=== PATIENT | male | born 1990 | race African-American/Black ===

== ENCOUNTER 2024-04-16 23:21 | Emergency (ER) | payer MEDICARE, MEDICAID ==
[~2024-04-16] VITALS: Ht 182.9 cm; Wt 96.0 kg
[2024-04-16 23:24] VITALS: TEMP 98; O2SAT 98
[2024-04-17 00:07] LABS: BASOPHILS % 0.5 % (0.0-2.0); DIFFERENTIAL COMMENT 0; EOSINOPHILS % 0.1 % (0.0-5.0); HEMATOCRIT. 43.6 % (42.0-52.0); HEMOGLOBIN. 15.3 g/dL (14.0-18.0); LYMPHOCYTES % 32.3 % (20.0-50.0); MEAN CORPUSCULAR HEMOGLOBIN 25.1 pg (28.0-32.0); MEAN CORPUSCULAR VOLUME 71.7 fL (80.0-94.0); MEAN PLATELET VOLUME 8.7 fl (7.4-10.4); MONOCYTES % 6.1 % (2.0-8.0); PLATELET 157 x1000/uL (130-400); RED BLOOD CELL COUNT 6.08 mill/uL (4.7-6.1); RED CELL DISTRIBUTION WIDTH 15.2 % (11.6-14.6)
[2024-04-17 00:15] LABS: CHLORIDE 104 mEq/L (98-107); POTASSIUM 3.6 mEq/L (3.5-5.1); SODIUM 138 mEq/L (136-145)
[2024-04-17 00:16] LABS: CARBON DIOXIDE 27 mEq/L (21-32)
[2024-04-17 00:17] LABS: CALCIUM 9.3 mg/dL (8.7-10.4)
[2024-04-17 00:21] LABS: CREATININE 1.1 mg/dL (0.6-1.3); GLUCOSE 102 mg/dL (70-105)
[2024-04-17 00:22] LABS: UREA NITROGEN BLOOD 9 mg/dL (9-23)
[2024-04-17 00:43] LABS: ETHANOL BLOOD < 10 mg/dL (<10)
[2024-04-17] MEDS: PREGABALIN 75MG CAPSULE PO SCH (01:00)
[2024-04-17 01:45] VITALS: BP 162/74; PULSE 62; RESP 17; O2SAT 100
[2024-04-17] MEDS: BACLOFEN 10MG TABLET PO ONE (02:21)
[2024-04-17] MEDS: BACLOFEN 10MG TABLET PO NR (02:21)
[2024-04-17] MEDS: MELOXICAM 7.5MG TABLET PO SCH (02:41)
== END 2024-04-17 01:45 | disposition left against medical advice (07) ==
LOC: ER 23:21
DX: G40.909 Epilepsy, unspecified, not intractable, without status epilepticus (principal); Z88.6 Allergy status to analgesic agent; Z91.040 Latex allergy status; Z98.890 Other specified postprocedural states
CPT/HCPCS: 36415; 80048; 80320; 85025; 99284; G0480